=== PATIENT | female | born 1935 | race Caucasian/White ===

== ENCOUNTER 2017-09-23 10:25 | Emergency (ER) | payer MEDICARE, BC ==
[2017-09-23 10:48] VITALS: BP 133/69
--- NOTE | 2017-09-23 11:03 | UC ---
Skin Complaint HPI - HPI Summary HPI Summary: Patient started having some pain and redness develop on the right hip and back, has had shingles in this spot about 4 years ago - History of Current Complaint Chief Complaint: UCSkin Time Seen by Provider: 09/23/17 10:27 Stated Complaint: SKIN COMPLAINT Hx Obtained From: Patient ?: No Onset/Duration: Sudden Onset, Lasting Hours Skin Exposure Onset/Duration: Hours Ago Timing: Constant Onset Severity: Mild Current Severity: None - Allergy/Home Medications Allergies/Adverse Reactions: Allergies Allergy/AdvReac Type Severity Reaction Status Date / Time Adhesive Tape Allergy Rash Verified 09/23/17 10:33 Aspirin Allergy Difficulty Verified 09/23/17 10:33 Breathing Codeine Allergy Hallucinati Verified 09/23/17 10:33 ons ANTI-DEPRESSANTS Allergy Unknown Uncoded 09/23/17 10:33 Reaction Details ANTI-INFLAMMATORIES Allergy Rash Uncoded 09/23/17 10:33 CHEMICALS Allergy Difficulty Uncoded 09/23/17 10:33 Breathing Red dye Allergy Rash Uncoded 09/23/17 10:33 Home Medications: Home Medications Loperamide CAP* [Imodium CAP*] 2 mg PO Q4H PRN 09/23/17 [History Confirmed 09/23] Review of Systems Constitutional: Negative Skin: Rash Eyes: Negative ENT: Negative Respiratory: Negative Cardiovascular: Negative Gastrointestinal: Negative Genitourinary: Negative Motor: Negative Neurovascular: Negative Musculoskeletal: Negative Neurological: Negative Psychological: Negative Is Patient Immunocompromised?: No All Other Systems Reviewed And Are Negative: Yes PMH/Surg Hx/FS Hx/Imm Hx Previously Healthy: Yes - Surgical History Surgical History: Yes Surgery Procedure, Year, and Place: T&A Age 20. Appendectomy. Heart Cath No cardiac issues - Family History Known Family History: Positive: None, Hypertension - Social History Alcohol Use: None Substance Use Type: None Smoking Status (MU): Never Smoked Tobacco - Immunization History Most Recent Influenza Vaccination: DOES NOT GET VACCINE Physical Exam Triage Information Reviewed: Yes Appearance: Well-Appearing, Well-Nourished, Pain Distress Vital Signs: Initial Vital Signs Temp 98.6 F 09/23/17 10:35 Pulse 59 09/23/17 10:35 Resp 18 09/23/17 10:35 BP 133/69 09/23/17 10:35 Pulse Ox 100 09/23/17 10:35 Vital Signs Reviewed: Yes Eye Exam: Normal ENT Exam: Normal Dental Exam: Normal Neck exam: Normal Respiratory Exam: Normal Cardiovascular Exam: Normal Abdominal Exam: Normal Bowel Sounds: Positive: Present Musculoskeletal Exam: Normal Neurological Exam: Normal Psychological Exam: Normal Skin: Positive: rashes - erythemic rash stringing from the lower lumbar right lanre o spine, down to the right hip, slightly elevated Course/Dx - Course Course Of Treatment: hx obtained, exam performed ,meds reviewed, treated for shingles - Differential Diagnoses - Skin Complaint Differential Diagnoses: Varicella Zoster - Diagnoses Provider Diagnoses: shingles Discharge - Discharge Plan Condition: Stable Disposition: HOME Prescriptions: ValACYclovir (*) [Valtrex 1 GM(*)] 1 gm PO TID #21 tab Patient Education Materials: Shingles (ED) Referrals: Bienvenido Scott MD [Primary Care Provider] - Additional Instructions: 1. take the Valtrex as prescribed. 2. take Tylenol 1000 mg every 8 hours for pain managment. 3. Follow up with Dr Scott if not improving, pain is uncontrolled or any other symptoms present
== END 2017-09-23 11:11 | disposition home or self-care (01) ==
LOC: UCCORT 10:25
DX: B02.9 Zoster without complications (principal)
CPT/HCPCS: 99212; G0463

== ENCOUNTER 2018-03-26 11:15 | Emergency (ER) | payer MEDICARE, BC, OTHER ==
--- NOTE | 2018-03-26 12:05 | UC ---
Skin Complaint HPI - HPI Summary HPI Summary: 82 yo female presents with ?insect bite to RIGHT lower leg. She tells me that yesterday afternoon she noticed a red spot just above her right inner ankle. Has a central black dot. She marked it with a pen. Redness did not increase today, but it was still there and she is worried it might be a tick. Denies pain , fever, chills, myalgias. - History of Current Complaint Chief Complaint: UCSkin Time Seen by Provider: 03/26/18 12:04 Stated Complaint: INSECT BITE - RT LEG Hx Obtained From: Patient Onset/Duration: Sudden Onset Current Severity: None Pain Intensity: 0 - Allergy/Home Medications Allergies/Adverse Reactions: Allergies Allergy/AdvReac Type Severity Reaction Status Date / Time Adhesive Tape Allergy Rash Verified 03/26/18 11:40 aspirin Allergy Difficulty Verified 03/26/18 11:40 Breathing codeine Allergy Hallucinati Verified 03/26/18 11:40 ons ANTI-DEPRESSANTS Allergy Unknown Uncoded 03/26/18 11:40 Reaction Details ANTI-INFLAMMATORIES Allergy Rash Uncoded 03/26/18 11:40 CHEMICALS Allergy Difficulty Uncoded 03/26/18 11:40 Breathing Red dye Allergy Rash Uncoded 03/26/18 11:40 Review of Systems Constitutional: Negative Skin: Other - ?bug bite to right leg Respiratory: Negative Cardiovascular: Negative Neurovascular: Negative Neurological: Negative Psychological: Negative All Other Systems Reviewed And Are Negative: Yes PMH/Surg Hx/FS Hx/Imm Hx Cardiovascular History: Hypertension - Surgical History Surgical History: Yes Surgery Procedure, Year, and Place: T&A Age 20. Appendectomy. Heart Cath No cardiac issues 1992 - Family History Known Family History: Positive: None, Hypertension - Social History Occupation: Retired Lives: With Family Alcohol Use: None Substance Use Type: None Smoking Status (MU): Never Smoked Tobacco - Immunization History Most Recent Influenza Vaccination: DOES NOT GET VACCINE Physical Exam - Summary Physical Exam Summary: GENERAL: NAD. WDWN. No pain distress. SKIN: RIGHT superior medial ankle: 1.0cm area of mild erythema with <1mm central dark red dot resembling a blood blister. NTTP. No edema. No streaking, bleeding, or drainage. NECK: Supple. Nontender. No lymphadenopathy. CHEST: No accessory muscle use. Breathing comfortably and in no distress. CV: RRR. Without m/r/g. NEURO: Alert. CN II-XII grossly intact. PSYCH: Age appropriate behavior. Triage Information Reviewed: Yes Vital Signs: Initial Vital Signs Temp 98.1 F 03/26/18 11:36 Pulse 58 03/26/18 11:36 Resp 18 03/26/18 11:36 BP 156/82 03/26/18 11:36 Pulse Ox 99 03/26/18 11:36 Course/Dx - Course Course Of Treatment: Suspect insect bite vs contact derm. Advised to use at home bacitracin and OTC hydrocortisone cream and keep covered. If symptoms worsen/persist please fu with PCP - Diagnoses Provider Diagnoses: Insect bite right lower leg Discharge - Sign-Out/Discharge Documenting (check all that apply): Discharge/Admit/Transfer - Discharge Plan Condition: Stable Disposition: HOME Patient Education Materials: Insect Bite or Sting (ED) Referrals: Bienvenido Scott MD [Primary Care Provider] - Additional Instructions: If you develop a fever, shortness of breath, chest pain, new or worsening symptoms - please call your PCP or go to the ED. Your blood pressure was high at todays visit. Please see your primary provider within 4 weeks for recheck and re-evaluation. - Billing Disposition and Condition Condition: STABLE Disposition: HOME
[2018-03-26 12:15] VITALS: BP 134/70
== END 2018-03-26 12:16 | disposition home or self-care (01) ==
LOC: UCCORT 11:15
DX: S80.861A Insect bite (nonvenomous), right lower leg, initial encounter (principal); W57.XXXA Bitten or stung by nonvenomous insect and other nonvenomous arthropods, initial encounter; Y93.9 Activity, unspecified; Y92.9 Unspecified place or not applicable; Z88.6 Allergy status to analgesic agent; Z88.5 Allergy status to narcotic agent; Z88.8 Allergy status to other drugs, medicaments and biological substances; Z91.048 Other nonmedicinal substance allergy status; Z91.09 Other allergy status, other than to drugs and biological substances
CPT/HCPCS: 99211; G0463

== ENCOUNTER 2019-07-26 09:51 | Emergency (ER) | payer MEDICARE, BC ==
[2019-07-26 10:19] VITALS: BP 146/76
--- NOTE | 2019-07-26 11:38 | UC ---
Skin Complaint HPI - HPI Summary HPI Summary: 84-year-old female presents with complaints of redness and swelling to her left hand following a bite to her hand by an unknown insect or arachnid. States last evening she was taking out the garbage and when she returned in size she noticed an erythematous, pruritic lesion to the back of her left hand right at the base of the thumb. Reports then noticed some redness that began to spread across the dorsal, radial hand which she immediately marked with a pen. States she started using a topical cortisone cream and the redness subsided. States initial lesion has persisted and is mildly pruritic. Denies fever, chills, swelling of the lips, tongue, throat, dysphagia, or difficulty breathing. - History of Current Complaint Chief Complaint: UCSkin Time Seen by Provider: 07/26/19 11:12 Stated Complaint: L HAND SKIN COMP Hx Obtained From: Patient Hx Last Menstrual Period: post menapausal Pain Intensity: 0 - Allergy/Home Medications Allergies/Adverse Reactions: Allergies Allergy/AdvReac Type Severity Reaction Status Date / Time Adhesive Tape Allergy Rash Verified 03/26/18 11:40 aspirin Allergy Difficulty Verified 03/26/18 11:40 Breathing codeine Allergy Hallucinati Verified 03/26/18 11:40 ons meperidine [From Demerol] Allergy Hallucinati Verified 07/26/19 10:21 ons ANTI-DEPRESSANTS Allergy Unknown Uncoded 03/26/18 11:40 Reaction Details ANTI-INFLAMMATORIES Allergy Rash Uncoded 03/26/18 11:40 antibiotic Allergy Diarrhea Uncoded 07/26/19 10:21 CHEMICALS Allergy Difficulty Uncoded 03/26/18 11:40 Breathing Red dye Allergy Rash Uncoded 03/26/18 11:40 PMH/Surg Hx/FS Hx/Imm Hx Cardiovascular History: Hypertension - Surgical History Surgical History: Yes Surgery Procedure, Year, and Place: T&A Age 20. Appendectomy. Heart Cath No cardiac issues 1992 - Family History Known Family History: Positive: None, Hypertension - Social History Occupation: Retired Lives: With Family Alcohol Use: None Substance Use Type: None Smoking Status (MU): Never Smoked Tobacco - Immunization History Most Recent Influenza Vaccination: DOES NOT GET VACCINE Review of Systems All Other Systems Reviewed And Are Negative: Yes Constitutional: Negative: Fever, Chills Skin: Positive: Other - See HPI Eyes: Negative: Drainage, Eye Redness ENT: Negative: Sore Throat, Ear Ache, Nasal Discharge, Sinus Congestion, Sinus Pain/Tenderness, Other - Swelling of the lips, tongue, or throat Respiratory: Negative: Shortness Of Breath Cardiovascular: Positive: Negative Gastrointestinal: Positive: Negative Genitourinary: Positive: Negative Musculoskeletal: Positive: Negative Neurological: Positive: Negative Is Patient Immunocompromised?: No Physical Exam - Summary Physical Exam Summary: GENERAL APPEARANCE: Well developed, well nourished, alert and cooperative, and appears to be in no acute distress. MOUTH/THROAT: No swelling of lips, tongue, or throat. Airway patent. CARDIAC: Normal S1 and S2. No S3, S4 or murmurs. Rhythm is regular. There is no peripheral edema, cyanosis or pallor. Extremities are warm and well perfused. Capillary refill is less than 2 seconds. Peripheral pulses intact. LUNGS: Clear to auscultation without rales, rhonchi, wheezing or diminished breath sounds. ABDOMEN: Positive bowel sounds. Soft, nondistended, nontender. No guarding or rebound. No masses or hepatosplenomegally. MUSKULOSKELETAL: ROM intact to all extremities. No joint erythema or tenderness. Normal muscular development. Normal gait. EXTREMITIES: 1 cm circular, erythematous, raised lesion to the dorsal left hand at the base of the thumb. No erythema, edema, or increased warmth of the surrounding tissues which were marked with ink by patient prior to arrival. SKIN: Skin normal color, texture and turgor. Triage Information Reviewed: Yes Vital Signs: Initial Vital Signs Temp 98.3 F 07/26/19 10:13 Pulse 60 07/26/19 10:13 Resp 16 07/26/19 10:13 BP 146/76 07/26/19 10:13 Pulse Ox 100 07/26/19 10:13 Vital Signs Reviewed: Yes Course/Dx - Course Course Of Treatment: 84-year-old female presents with complaints of redness and swelling to her left hand following a bite to her hand by an unknown insect or arachnid. States last evening she was taking out the garbage and when she returned in size she noticed an erythematous, pruritic lesion to the back of her left hand right at the base of the thumb. Reports then noticed some redness that began to spread across the dorsal, radial hand which she immediately marked with a pen. States she started using a topical cortisone cream and the redness subsided. States initial lesion has persisted and is mildly pruritic. Denies fever, chills, swelling of the lips, tongue, throat, dysphagia, or difficulty breathing. Afebrile. Hypertensive otherwise vital signs stable. Patient had a 1 cm circular, erythematous, raised lesion to the dorsal left hand at the base of the thumb. No erythema, edema, or increased warmth of the surrounding tissues which were marked with ink by patient prior to arrival. Discussed with patient that her symptoms were likely a localized reaction to an insect bite especially considering symptoms improved with use of a topical cortisone cream. Encouraged to continue to use the topical steroid cream according to directions for any erythema or itching as well as use of [id number] diphenhydramine according to directions as needed for itching. She is to follow-up with her primary care provider in 3 days if symptoms are not improving. Anticipatory guidance and warning symptoms require immediate evaluation the emergency room reviewed with the patient. Verbalizes understanding and agrees with plan of care. - Differential Diagnoses - Skin Complaint Differential Diagnoses: Cellulitis, Contact Dermatitis, Local Allergic Reaction , MRSA - Diagnoses Provider Diagnosis: Insect bite of left hand with local reaction Discharge ED - Sign-Out/Discharge Documenting (check all that apply): Patient Departure All imaging exams completed and their final reports reviewed: No Studies - Discharge Plan Condition: Stable Disposition: HOME Patient Education Materials: Insect Bite or Sting (ED) Referrals: Bienvenido Scott MD [Primary Care Provider] - 3 Days Additional Instructions: Your history and exam are consistent with a localized reaction to an insect bite. Continue using [id number] hydrocortisone cream as directed to help with any itching or redness. You may also use [id number] diphenhydramine (Benadryl) according to directions as needed for itching. Follow-up with your primary care provider in 3 days especially if symptoms are not improving. Seek immediate medical attention in the emergency room if you develop a fever greater than 100.5 F, have rapidly spreading redness, the hand becomes painful or severely swollen, he developed swelling of the lips, tongue, throat, difficulty breathing, or any worsening of symptoms. - Billing Disposition and Condition Condition: STABLE Disposition: Home
== END 2019-07-26 11:53 | disposition home or self-care (01) ==
LOC: UCCORT 09:51
DX: S60.562A Insect bite (nonvenomous) of left hand, initial encounter (principal); W57.XXXA Bitten or stung by nonvenomous insect and other nonvenomous arthropods, initial encounter; Y93.89 Activity, other specified; Y92.008 Other place in unspecified non-institutional (private) residence as the place of occurrence of the external cause; Z88.6 Allergy status to analgesic agent; Z88.5 Allergy status to narcotic agent; Z88.8 Allergy status to other drugs, medicaments and biological substances; Z88.1 Allergy status to other antibiotic agents; I10 Essential (primary) hypertension
CPT/HCPCS: 99211; G0463